=== PATIENT | female | born 2000 | race Caucasian/White ===

== ENCOUNTER 2022-04-03 16:15 | Emergency (ER) | payer OTHER, SELFPAY ==
[2022-04-03 16:20] VITALS: BP 131/70; PULSE 80; RESP 18; TEMP 36.7; O2SAT 100
--- NOTE | 2022-04-03 16:50 | PC.NURSE ---
Patient reports multiple negative tests at home in the past two weeks. Patient reports she used to be on the Depo shot but no longer gets it but reports she hasn't had her period since. Patient's bedside test in ED negative.
--- NOTE | 2022-04-03 17:00 | ED.GENADULT ---
HPI - General Adult General Chief complaint: Unspecified Stated complaint: breast pain Time Seen by Provider: 04/03/22 16:30 History of Present Illness HPI narrative: Patient is a 21-year-old female here for evaluation of bilateral breast pain over the past several days. Patient describes the pain as a soreness, and is worse when she takes her bra off at nighttime. She is attempted Tylenol without much relief of her symptoms. Patient has had an ultrasound of her breast that was normal. She is planning to get a breast reduction in the future. She has been on Depo-Provera for her adult life but recently came off in October, has not yet had menstrual cycle. she denies breast swelling, new lumps, skin changes to the breasts, redness, fevers, chills, nausea, vomiting. Review of Systems Review of Systems: Gen: Denies fevers or chills Eyes: Denies eye pain or visual change ENT: Denies congestion Respiratory: Denies shortness of breath or cough CV: Denies chest pain or palpitations GI: Denies abdominal pain nausea, emesis or diarrhea denies burning, urgency, frequency or hematuria Musculoskeletal: Reports bilateral breast pain. Denies back pain or muscle pain Neuro: Denies numbness, tingling, weakness or focal weakness Skin: Denies rash Except as documented, all other systems reviewed and negative Exam Narrative: Gen: Alert, oriented, no acute distress. Eyes: EOMI, no icterus Pulm: Respirations even and unlabored, symmetric thorax expansion, no audible stridor or visible cyanosis CV: Regular rate per telemetry MSK: Macromastia bilaterally. Diffuse tenderness to palpation of bilateral breasts, no masses palpated, no axillary lymphadenopathy, no overlying skin changes, nipple inversion, or nipple discharge expressed. Breasts are symmetric. GI: No distension, no voluntary/involuntary guarding Neuro: AOx4, moves all extremities without apparent difficulty or weakness, follows commands Skin: No jaundice, no visible bruising, rashes, lesions or wounds on exposed skin Psych: Normal mood/affect, insight/judgement good, adequate fund of knowledge, recent/remote memory intact Course Vital Signs Vital signs: Vital Signs Temperature 98.1 F 04/03/22 16:20 Pulse Rate 80 04/03/22 16:20 Respiratory Rate 18 04/03/22 16:20 Blood Pressure 131/70 04/03/22 16:20 Pulse Oximetry 100 04/03/22 16:20 Temperature 98.1 F 04/03/22 16:20 Pulse Rate 80 04/03/22 16:20 Respiratory Rate 18 04/03/22 16:20 Blood Pressure 131/70 04/03/22 16:20 Pulse Oximetry 100 04/03/22 16:20 Medical Decision Making MDM Narrative Medical decision making narrative: 21-year-old female here for evaluation of bilateral breast pain over the past several days. History and physical exam are not suspicious for breast cancer or breast abscess. Feel likely her bilateral breast pain is due to her oncoming menstrual cycle given that she recently went off Depo-Provera. Her urine test is negative here. Previous recent breast ultrasound was negative. Advised her to wear supportive bras, trial of evening primrose oil for pain. discussed return precautions and she voiced understanding. Vital Signs Vital Signs: Vital Signs Temperature 98.1 F 04/03/22 16:20 Pulse Rate 80 04/03/22 16:20 Respiratory Rate 18 04/03/22 16:20 Blood Pressure 131/70 04/03/22 16:20 Pulse Oximetry 100 04/03/22 16:20 Temperature 98.1 F 04/03/22 16:20 Pulse Rate 80 04/03/22 16:20 Respiratory Rate 18 04/03/22 16:20 Blood Pressure 131/70 04/03/22 16:20 Pulse Oximetry 100 04/03/22 16:20 Lab Data Labs: UCG Bedside Result Negative Reference Range: Negative Discharge Plan Discharge Clinical Impression: Pain of both breasts Patient Disposition: Home, Self-Care Condition: Stable Instructions: Antibiotic Form, [facility]
== END 2022-04-03 17:22 | disposition home or self-care (01) ==
LOC: ANHED 17:14
PROVIDERS: Emergency Provider Preventive Medicine Aerospace Medicine
DX: N64.4 Mastodynia (principal)
CPT/HCPCS: 81025; 99283

== ENCOUNTER 2022-05-11 20:51 | Emergency (ER) | payer OTHER, SELFPAY ==
[2022-05-11] VITALS (12 sets, daily range): BP systolic 97–139; BP diastolic 51–89; PULSE 71–92; RESP 13–18; TEMP 36.7; O2SAT 98–100
--- NOTE | ~2022-05-11 | XR_ITS ---
EXAMINATION: XR chest 2V Exam Date/Time: 05/11/2022 21:48 CDT HISTORY: sternal chest pain; denies card/pulm hx Comparison: None available. RESULT: Lines, tubes, and devices: None. Lungs and pleura: Clear. Cardiomediastinal silhouette: Normal. Other: No acute osseous or upper abdominal finding. IMPRESSION: No acute cardiopulmonary process. Reviewed, dictated and finalized at location K.
--- NOTE | ~2022-05-11 | CT_ITS ---
EXAMINATION: CT brain wo con DATE: 05/12/2022 00:26 INDICATION: Headache. TECHNIQUE: Computed tomography (CT) of the head was performed without intravenous contrast. The mA wa s adjusted according to patient size. Iterative reconstruction technique was employed. The dose-lengt h product was 605.33 mGy-cm. COMPARISON: None FINDINGS: There is no intracranial hemorrhage, acute infarction, or abnormal intracranial mass lesion . The paranasal sinuses are clear. The orbits are normal. The mastoid air cells are normal. IMPRESSION: 1. Normal brain. Reviewed, dictated and finalized at location A. IMPRESSION: 1. Normal brain.
--- NOTE | 2022-05-11 21:34 | ECG_ITS ---
Measurements Intervals Bryant Rate: 87 P: 50 WA: 136 QRS: 17 QRSD: 91 T: 11 QT: 370 QTc: 447 Interpretive Statements SINUS RHYTHM BASELINE WANDER- III NORMAL ECG NO PREVIOUS ECG AVAILABLE FOR COMPARISON Electronically Signed On 05-12-2022 6:51:07 CDT by Oziel Walker D.O.
[2022-05-11 22:56] LABS: Basophils Absolute Auto 0.1 K/mm3 (0.0-0.1); Basophils Percent Auto 0.6 % (0.2-1.2); Eosinophils Absolute Auto 0.1 K/mm3 (0-0.3); Eosinophils Percent Auto 1.6 % (0-4.4); Hematocrit 42.3 % (37.0-47.0); Hemoglobin 14.1 g/dL (12.0-15.0); Immature Granulocyte Absolute 0.02 K/mm3 (0.00-0.031); Immature Granulocyte Percent A 0.2 % (0-0.5); Lymphocytes Absolute Auto 3.23 K/mm3 (0.9-3.2); Lymphocytes Percent Auto 35.8 % (18.3-44.2); Mean Corpuscular HGB Conc 33.3 g/dl (32-36); Mean Corpuscular Hemoglobin 29.6 pg (26-34); Mean Corpuscular Volume 88.9 fl (80-100); Monocytes Absolute Auto 0.5 K/mm3 (0.1-0.6); Monocytes Percent Auto 5.3 % (2.6-8.5); Neutrophils Absolute Auto 5.1 K/mm3 (1.3-6.7); Neutrophils Percent Auto 56.5 % (45.5-73.1); Platelet Count Result 243 k/mm3 (150-375); Red Blood Count 4.76 M/mm3 (4.2-5.4); Red Cell Distribution Width 12.9 % (11.5-14.5)
[2022-05-11 23:11] LABS: Prothrombin Time 12.8 Seconds (11.1-14.7)
[2022-05-11 23:12] LABS: Partial Thromboplastin Time 29.3 SECONDS (22.3-36.8)
[2022-05-11 23:16] LABS: Alanine Aminotransferase 22 U/L (6-35); Albumin Level 4.5 g/dL (3.5-5.1); Alkaline Phosphatase 74 U/L (38-126); Anion Gap 14 mmol/L (8-16); Aspartate Amino Transferase 23 U/L (14-36); Bilirubin,Total 0.3 mg/dL (0.2-1.3); Blood Urea Nitrogen 12 mg/dL (7-17); Calcium 8.9 mg/dL (8.4-10.2); Carbon Dioxide 23 mmol/L (22-30); Chloride 102 mmol/L (98-107); Estimated Glomerular Filt Rate > 60; Glucose 93 mg/dL (65-110); Lipase 42 U/L (23-300); Potassium 3.6 mmol/L (3.4-5.0); Sodium 139 mmol/L (137-145)
[2022-05-11 23:27] LABS: Troponin I < 0.012 ng/mL (0.000-0.034)
[2022-05-12] VITALS (9 sets, daily range): BP systolic 115; BP diastolic 68; PULSE 75–89; RESP 10–20; O2SAT 98–100
--- NOTE | 2022-05-12 00:02 | ED.CHESTPAIN ---
HPI - Chest Pain General Chief Complaint: Chest Pain <Marie Dalton PA-C - Last Filed: 05/12/22 01:46> Stated Complaint: CHEST PAIN <Marie Dalton PA-C - Last Filed: 05/12/22 01:46> Time Seen by Provider: 05/11/22 23:47 <Marie Dalton PA-C - Last Filed: 05/12/22 01:46> Source: patient <Marie Dalton PA-C - Last Filed: 05/12/22 01:46> Mode of arrival: ambulatory <Marie Dalton PA-C - Last Filed: 05/12/22 01:46> Limitations: no limitations <Marie Dalton PA-C - Last Filed: 05/12/22 01:46> History of Present Illness HPI narrative: This is a 22 year old female that presents to the ER for chest pain ongoing over the last couple of days. Reports that her pain is intermittent and sharp in nature. Worse with movement. Also reports she has been having some lightheadedness and headaches. Denies fever, vomiting, or shortness of breath. <Marie Dalton PA-C - Last Filed: 05/12/22 01:46> Related Data Allergies/Adverse Reactions: Allergies Allergy/AdvReac Type Severity Reaction Status Date / Time No Known Allergies Allergy Verified 05/11/22 22:48 <Marie Dalton PA-C - Last Filed: 05/12/22 01:46> Review of Systems Review of Systems: CONSTITUTIONAL: Denies fever CARDIOVASCULAR: Reports chest pain. Denies edema. RESPIRATORY: Denies cough or dyspnea. <Marie Dalton PA-C - Last Filed: 05/12/22 01:46> All systems reviewed & are unremarkable except as noted in HPI and below <Marie Dalton PA-C - Last Filed: 05/12/22 01:46> [facility] Past Medical History Medical History: Medical History (Updated 05/12/22 @ 01:44 by Marie Dalton PA-C) History of hypertension <Marie Dalton PA-C - Last Filed: 05/12/22 01:46> Social History Social History: Social History (Updated 05/12/22 @ 00:03 by Marie Dalton PA-C) Smoking status: Never smoker Substance use: never <Marie Dalton PA-C - Last Filed: 05/12/22 01:46> Exam Narrative: GENERAL: Well-appearing, well-nourished, and in no acute distress. HEAD: Normocephalic, atraumatic. EYES: PERRLA and EOMI. ENT: Nares clear, no rhinorrhea or epistaxis. Mucous membranes moist. Oropharynx without tonsillar hypertrophy exudate or other lesions. Bilateral TMs pearly mathur non-bulging NECK: Supple. No adenopathy or masses. CHEST: Clear to auscultation. No respiratory distress. No wheezes rales or rhonchi HEART: Regular rate and rhythm. No murmur heard. Normal peripheral pulses. EXTREMITIES: Normal range of motion. No edema. SKIN: Warm, dry, no rash. NEURO: No focal deficits. Alert and oriented x3. Cranial nerves II through XII grossly intact PSYCH: Normal mood and affect <Marie Dalton PA-C - Last Filed: 05/12/22 01:46> Course Vital Signs Vital signs: Vital Signs Temperature 98.1 F 05/11/22 21:30 Pulse Rate 86 05/11/22 21:30 Respiratory Rate 18 05/11/22 21:30 Blood Pressure 139/89 05/11/22 21:30 Pulse Oximetry 100 05/11/22 21:30 Oxygen Delivery Room Air 05/11/22 21:30 Temperature 98.1 F 05/11/22 21:30 Pulse Rate 77 05/12/22 01:45 Respiratory Rate 17 05/12/22 01:45 Blood Pressure 115/68 05/12/22 00:17 Pulse Oximetry 99 05/12/22 01:45 Oxygen Delivery Room Air 05/11/22 21:30 <Marie Dalton PA-C - Last Filed: 05/12/22 01:46> Vital Signs Temperature 98.1 F 05/11/22 21:30 Pulse Rate 86 05/11/22 21:30 Respiratory Rate 18 05/11/22 21:30 Blood Pressure 139/89 05/11/22 21:30 Pulse Oximetry 100 05/11/22 21:30 Oxygen Delivery Room Air 05/11/22 21:30 Temperature 98.1 F 05/11/22 21:30 Pulse Rate 77 05/12/22 01:45 Respiratory Rate 17 05/12/22 01:45 Blood Pressure 115/68 05/12/22 00:17 Pulse Oximetry 99 05/12/22 01:45 Oxygen Delivery Room Air 05/11/22 21:30 <Jenny Villarreal MD - Last Filed: 05/12/22 06:08> MDM - Chest Pain MDM Narrative Medical decision making narrative: Caterina
[2022-05-12] MEDS: Please add drug allergy info to patient profile. 1 EACH XX ×2 (00:03→00:15)
[2022-05-12] MEDS: SODIUM CHLORIDE 0.9% IV 1,000 ML 999 ML IV CONT (00:10)
[2022-05-12 01:03] LABS: Troponin I < 0.012 ng/mL (0.000-0.034)
== END 2022-05-12 02:02 | disposition home or self-care (01) ==
PROVIDERS: Emergency Medicine; Emergency Provider General Practice
DX: R07.89 Other chest pain (principal); R42 Dizziness and giddiness; I10 Essential (primary) hypertension
CPT/HCPCS: 36415; 70450; 71046; 80053; 83690; 84484; 85025; 85610; 85730; 93005; 96361; 96374; 99284; J0131; J7030